=== PATIENT | male | born 1980 | race Asian ===

== ENCOUNTER 2016-12-26 00:59 | Emergency (ER) | payer BC ==
[~2016-12-26] VITALS: Ht 180.3 cm; Wt 77.1 kg
[2016-12-26 01:15] VITALS: BP_SYST 112
[2016-12-26 01:49] VITALS: BP_SYST 112
== END 2016-12-26 01:49 | disposition home or self-care (01) ==
LOC: SED 00:59
DX: K64.9 Unspecified hemorrhoids (principal)
CPT/HCPCS: 99283